=== PATIENT | female | born 1970 | race Caucasian/White ===

== ENCOUNTER → 2023-12-20 14:30 | Outpatient (REF) | payer OTHER, SELFPAY | LOC: DHCBC MAIN 14:30 | PROVIDERS: ATTENDING PHYSICIAN Internal Medicine; FAMILY PHYSICIAN Family Medicine | DX: I34.0 Nonrheumatic mitral (valve) insufficiency (principal); I36.1 Nonrheumatic tricuspid (valve) insufficiency | CPT/HCPCS: 93306 ==

== ENCOUNTER → 2023-12-26 12:51 | Outpatient (REF) | payer OTHER, SELFPAY | LOC: RCS 12:51 | PROVIDERS: ATTENDING PHYSICIAN Internal Medicine; FAMILY PHYSICIAN Family Medicine | DX: C50.912 Malignant neoplasm of unspecified site of left female breast (principal); Z92.3 Personal history of irradiation; I45.10 Unspecified right bundle-branch block; R07.89 Other chest pain | CPT/HCPCS: 93017 ==

== ENCOUNTER → 2024-04-07 07:31 | Outpatient (REF) | payer OTHER, SELFPAY | LOC: RAD 07:31 | PROVIDERS: ATTENDING PHYSICIAN Student in an Organized Health Care Education/Training Program | DX: R10.31 Right lower quadrant pain (principal) | CPT/HCPCS: 76882 ==

== ENCOUNTER → 2024-04-21 14:09 | Outpatient (REF) | payer OTHER, SELFPAY | LOC: WDC 14:09 | PROVIDERS: ATTENDING PHYSICIAN Obstetrics & Gynecology; FAMILY PHYSICIAN Family Medicine | DX: R92.8 Other abnormal and inconclusive findings on diagnostic imaging of breast (principal); Z85.3 Personal history of malignant neoplasm of breast | CPT/HCPCS: 76642 ==

== ENCOUNTER → 2024-09-05 19:12 | Outpatient (REF) | payer OTHER, SELFPAY | LOC: MRI 19:12 | PROVIDERS: ATTENDING PHYSICIAN Specialist; FAMILY PHYSICIAN Family Medicine | DX: G93.41 Metabolic encephalopathy (principal) | CPT/HCPCS: 70553; A9575 ==

== ENCOUNTER 2024-09-09 20:08 | Emergency (ER) | payer OTHER, SELFPAY ==
[2024-09-09 20:10] VITALS: BP 159/96
--- NOTE | 2024-09-09 20:24 | ED.MUSCINJ ---
HPI-Injury
General
Chief Complaint: Fall
Source: patient
Exam Limitations: none
Time Seen by Provider: 09/09/24 20:16
Nursing documentation reviewed up to this point in time: agreed with
History of Present Illness-Injury
Initial Injury comments:
53-year-old female tripped over her boyfriend's trailer rig within the past few hours, injured her left thumb, mild abrasion of both shins and right knee. Denies hitting head or any other injury. Her main concern is her right thumb because she has
a clinic in 4 days to learn how to safely fall off a horse.
Past History
Past History
ED Past Medical History: None
ED Past Surgical History: Other (Breast lumpectomy)
Social History
Tobacco: Non-smoker
Alcohol: None
Personal: Single
Living: with roommate
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
Review of Systems
Review of Systems
Allergies reviewed?: Yes
All Other Systems: ROS reviewed and negative except as documented in HPI and ROS
Respiratory: Denies trouble breathing
Cardiac: Denies chest pain
ABD/GI: Denies abdominal pain
Musculoskeletal: Reports other (pain right thumb); Denies neck pain or back pain
Skin: Reports other (mild scrapes both lower legs)
Neurological: Denies headache
Phy Exam
Physical Exam
Physical Exam:
GENERAL: No acute distress. A&Ox3.
CONSTITUTIONAL: Afebrile.
EYES: clear, conjunctivae normal
ENMT: moist mucus membranes, Pharynx nl
RESPIRATORY: Regular respirations, nonlabored, lungs clear.
CARDIOVASCULAR: Regular rate and rhythm, no murmurs, no rubs.
GI: Soft, nontender, normal BS
MUSCULOSKELETAL: No spinal bony tenderness. Other than right thumb, no bony tenderness of extremities. Ambulates well without limp. Moves with ease. Well perfused.
SKIN: Warm, dry, pink, tiny superficial scrapes both shins, right knee
PSYCH: Normal mood and affect. Well kept, interactive and appropriate
NEUROLOGIC: Awake, alert and oriented. No focal neurological deficits
Injury Course
Orders/Labs/Results
Orders:
Orders
09/09/24 20:13
Hand, Right 3 View [CR Hand - Right Min 3 Views] Urgent
Comment:
Reason For Exam: fall/right hand pain
09/09/24 20:53
Giancarlo Wrap Right-Treatment ONCE
MDM/Problems Addressed
MDM/Problems Addressed:
53-year-old female tripped over her boyfriend's trailer rig within the past few hours, injured her left thumb, mild abrasion of both shins and right knee. Denies hitting head or any other injury. Her main concern is her right thumb because she has
a clinic in 4 days to learn how to safely fall off a horse.
Abrasions of shins and right knee are miniscule
No bony tenderness to LE's no imaging indicated
R hand xray neg for fracture
exam consistent with sprain of thenar eminence
Giancarlo wrap applied by this examiner
*Radiology
Radiology exam reviewed: preliminary read by ED provider (No fracture)
*Critical Care Note
Total Time (30-74mins, 75-104mins- exclusive of procedures): Not Applicable
ED Attending Note
-
Portions of this chart may have been created with voice recognition software.� Occasional wrong word or��sound alike� substitutions may have occurred due to the inherent limitations of voice recognition software.
Discharge Plan
Departure
Patient Disposition: Home (Routine Discharge)
Date of Disposition: 09/09/24
Time of Disposition: 20:45
Patient with high blood pressure during this ER visit?: No
Condition: Good
Discharge Problem:
Sprain of right thumb
Instructions: Sprained Thumb
Referrals:
Maltese,Bridgett Megan, DO [Family Provider] - As needed
Activity Restrictions/Additional Instructions:
As we discussed, your x-ray shows nothing is broken. You have a sprained thumb. Wear the Giancarlo wrap as needed for up to 3 days for comfort, support, swelling.
Cold compress to the area 20 minutes off and on is much as you can tomorrow to reduce the swelling.
Tylenol or ibuprofen as needed for pain.
Interventions
Interventions:
*Risk Screen - Suicide Last Done: 09/09/24 20:10
*General Assessment Last Done: 09/09/24 20:10
*Neglect/Abuse Screening Last Done: 09/09/24 20:10
*ED COVID-19 Vaccine History Last Done: 09/09/24 20:22
*Nursing Disposition Last Done: 09/09/24 21:01
ED-Musculoskeletal Assessment Last Done: 09/09/24 20:22
ED- Neurological Assessment Last Done: 09/09/24 20:22
ED-Skin Assessment Last Done: 09/09/24 20:22
Discharge Date and Time
Discharge Date/Time: 09/09/24 21:02
Print Language: JAPANESE
[2024-09-09 21:01] VITALS: BP 125/80
== END 2024-09-09 21:02 | disposition home or self-care (01) ==
LOC: EMR 20:08
PROVIDERS: EMERGENCY PHYSICIAN Emergency Medicine; FAMILY PHYSICIAN Family Medicine
DX: S63.601A Unspecified sprain of right thumb, initial encounter (principal); S80.211A Abrasion, right knee, initial encounter; S80.811A Abrasion, right lower leg, initial encounter; S80.812A Abrasion, left lower leg, initial encounter; W19.XXXA Unspecified fall, initial encounter
CPT/HCPCS: 99283; 73130

== ENCOUNTER → 2024-10-21 06:54 | Outpatient (REF) | payer OTHER, SELFPAY | LOC: WDC 06:54 | PROVIDERS: ATTENDING PHYSICIAN Obstetrics & Gynecology; FAMILY PHYSICIAN Family Medicine | DX: Z12.31 Encounter for screening mammogram for malignant neoplasm of breast (principal) | CPT/HCPCS: 77063; 77067 ==

== ENCOUNTER → 2024-10-23 14:55 | Outpatient (REF) | payer OTHER, SELFPAY | LOC: WDC 14:55 | PROVIDERS: ATTENDING PHYSICIAN Obstetrics & Gynecology; FAMILY PHYSICIAN Family Medicine | DX: R92.8 Other abnormal and inconclusive findings on diagnostic imaging of breast (principal) | CPT/HCPCS: 76642 ==

== ENCOUNTER → 2024-10-29 09:29 | Outpatient (REF) | payer OTHER, SELFPAY | LOC: WDC 09:29 | PROVIDERS: ATTENDING PHYSICIAN Obstetrics & Gynecology; FAMILY PHYSICIAN Family Medicine | DX: R92.8 Other abnormal and inconclusive findings on diagnostic imaging of breast (principal) | CPT/HCPCS: 76642 ==

== ENCOUNTER → 2025-01-21 13:34 | Outpatient (REF) | payer OTHER, SELFPAY | LOC: WDC 13:34 | PROVIDERS: ATTENDING PHYSICIAN Obstetrics & Gynecology | DX: R92.30 Dense breasts, unspecified (principal) | CPT/HCPCS: 76641 ==

== ENCOUNTER → 2025-04-14 13:27 | Outpatient (REF) | payer OTHER, SELFPAY | LOC: RCS 13:27 | PROVIDERS: ATTENDING PHYSICIAN Internal Medicine; FAMILY PHYSICIAN Family Medicine | DX: I34.0 Nonrheumatic mitral (valve) insufficiency (principal); I36.1 Nonrheumatic tricuspid (valve) insufficiency; C50.912 Malignant neoplasm of unspecified site of left female breast; Z92.3 Personal history of irradiation | CPT/HCPCS: 93306; 93356 ==

== ENCOUNTER 2025-04-28 07:37 | Outpatient (RCR) | payer OTHER, SELFPAY | END 2025-04-28 23:59 | disposition home or self-care (01) | LOC: ROT 07:37 | PROVIDERS: ATTENDING PHYSICIAN Orthopaedic Surgery; FAMILY PHYSICIAN Family Medicine | DX: Z47.89 Encounter for other orthopedic aftercare (principal); S63.641D Sprain of metacarpophalangeal joint of right thumb, subsequent encounter; Z73.6 Limitation of activities due to disability | CPT/HCPCS: 97760 ==